=== PATIENT | female | born 1970 | race Two or more races ===

== ENCOUNTER 2017-10-17 11:19 | Emergency (ER) | payer MEDICAID ==
[~2017-10-17] VITALS: Ht 157.5 cm; Wt 90.7 kg
[2017-10-17 11:33] VITALS: BP 110/69
[2017-10-17] MEDS ORDERED: DEXAMETHASONE SOD PHOSPHATE 4 MG/ML VIAL IM ONE (12:30)
[2017-10-17] MEDS ORDERED: DEXAMETHASONE SOD PHOSPHATE 10 MG/ML VIAL ONE (12:31)
== END 2017-10-17 12:36 | disposition home or self-care (01) ==
LOC: ER 11:23
DX: M46.1 Sacroiliitis, not elsewhere classified (principal)
CPT/HCPCS: A4606; J1100; Z7610